=== PATIENT | female | born 1990 | race Two or more races ===

== ENCOUNTER 2018-11-01 10:45 | Emergency (ER) | payer MEDICAID ==
[~2018-11-01] VITALS: Ht 160 cm; Wt 34.4 kg
[2018-11-01 10:57] VITALS: BP 149/96
== END 2018-11-01 12:54 | disposition home or self-care (01) ==
LOC: ED 12:48
DX: N72 Inflammatory disease of cervix uteri (principal)
CPT/HCPCS: 81003; 81025; 87210; 87491; 87591; 87808; 96372; 99283; J0696

== ENCOUNTER 2019-05-28 02:03 | Emergency (ER) | payer MEDICAID ==
[~2019-05-28] VITALS: Ht 154.9 cm; Wt 35.9 kg
--- NOTE | 2019-05-28 02:45 | NUR ---
Pt alert and resting on gurney. Pt reports infection in the right breast on Monday that was drained at . Pt reports she completed her antibiotic dose. Pt denies fevers. Pt in gown. [place] provided. Call light within reach. Addendum: 05/28/19 at 0307 by MRICH Pt reports her breast and nipple can feel "hot"
--- NOTE | 2019-05-28 02:50 | NUR ---
Pt to US.
[2019-05-28 04:10] VITALS: BP 112/74
--- NOTE | 2019-05-28 04:10 | NUR ---
Pt alert and resting on gurney. Pt aware of wait for US read. Pt denies needs at this time. VS retaken.
--- NOTE | 2019-05-28 05:09 | NUR ---
Went to d/c pt, pt left without d/c papers.
== END 2019-05-28 05:11 | disposition home or self-care (01) ==
LOC: ED 02:33
DX: N64.89 Other specified disorders of breast (principal)
CPT/HCPCS: 76642; 99284